=== PATIENT | male | born 1940 | race Two or more races ===

== ENCOUNTER 2023-04-28 18:06 | Emergency (ER) | payer OTHER ==
[~2023-04-28] VITALS: Ht 180.3 cm; Wt 63.4 kg
[2023-04-28 19:15] LABS: Basophils # (auto) 0 10 ^3/uL (0-0.2); Basophils % (auto) 0.3 % (0.0-2.0); Eosinophils # (auto) 0.1 10 ^3/uL (0-0.8); Eosinophils % (auto) 0.7 % (0.0-7.0); Hematocrit 31.5 % (41.0-53.0); Hemoglobin 10.4 g/dL (13.5-17.5); Lymphocytes # (auto) 1.9 10 ^3/uL (0.4-5.4); Lymphocytes % (auto) 19.8 % (10.0-50.0); Mean Corpuscular Hemoglobin 28.7 pg (28.0-32.0); Monocytes # (auto) 0.4 10 ^3/uL (0-1.3); Monocytes % (auto) 4.5 % (0.0-12.0); Neutrophils % (auto) 74.7 % (37.0-80.0); Nucleated Red Blood Cells % 0.1 %; Red Blood Cells 3.62 10^6/uL (4.5-5.90); White Blood Cell 9.4 10^3/uL (4.4-10.8)
[2023-04-28 19:26] LABS: INR 1.04 (0.9-1.15); Prothrombin Time 10.9 sec (9.3-11.8)
[2023-04-28] MEDS ORDERED: levoFLOXacin 500MG 100 ML IV ONE (19:30)
[2023-04-28 19:34] LABS: Alanine Aminotransferase 111 U/L (7-40); Albumin 3.9 g/dL (3.2-4.8); Alkaline Phosphatase 113 U/L (46-116); Anion Gap 11 (5-15); Aspartate Aminotransferase 87 U/L (13-40); BUN/Creatinine Ratio 11.6 (10.0-20.0); Bilirubin, Total 0.6 mg/dL (0.2-1.0); Blood Urea Nitrogen 15 mg/dL (9-23); Calcium 9.1 mg/dL (8.5-10.1); Carbon Dioxide 25 mmol/L (20-30); Chloride 101 mmol/L (98-107); Glucose 146 mg/dL (74-106); Potassium 4.2 mmol/L (3.5-5.1); Sodium 137 mmol/L (136-145); Total Protein 7.6 g/dL (5.7-8.2)
[2023-04-28] MEDS ORDERED: SODIUM CHLORIDE 0.9% 1,900 ML IV ONE (20:00)
[2023-04-28 21:02] VITALS: BP 136/64; PULSE 78; RESP 14; TEMP 94.9; O2SAT 98
[2023-04-29] MEDS ORDERED: IOHEXOL 350 MG/ML 100ML IJ ONE (01:32)
== END 2023-04-28 21:28 | disposition short-term general hospital (02) ==
LOC: ER 18:06 → EDBD 18:06 → ER 21:28
DX: I63.9 Cerebral infarction, unspecified (principal); T68.XXXA Hypothermia, initial encounter; J18.9 Pneumonia, unspecified organism; I10 Essential (primary) hypertension; E11.9 Type 2 diabetes mellitus without complications; F03.90 Unspecified dementia, unspecified severity, without behavioral disturbance, psychotic disturbance, mood disturbance, and anxiety; Y92.89 Other specified places as the place of occurrence of the external cause
CPT/HCPCS: 36415; 70450; 70496; 70551; 71045; 80053; 82962; 84443; 84484; 85025; 85610; 93005; 99291; Q9967